=== PATIENT | female | born 1990 | race Caucasian/White ===

== ENCOUNTER 2017-08-26 08:45 | Emergency (ER) | payer SELFPAY ==
[~2017-08-26] VITALS: Ht 154.9 cm; Wt 70.0 kg
[2017-08-26 08:47] VITALS: Ht 154.9 cm; Wt 70.0 kg
[2017-08-26] MEDS ORDERED: FAMOTIDINE 20 MG TAB PO ONE (10:00)
[2017-08-26] MEDS ORDERED: DIPHENHYDRAMINE 25 MG CAP PO ONE (10:00)
[2017-08-26] MEDS ORDERED: DEXAMETHASONE 10 MG/ML 1 ML INJ IM ONE (10:00)
[2017-08-26] MEDS ORDERED: BEN25 PO (11:12)
--- NOTE | 2017-08-26 11:36 | ERD ---
ER Documentation Chief Complaint Chief Complaint ALLERGIC REACTION HPI A 27-year-old female patient with no significant past medical history presents to the ED complaining of hives all over her body and face. States that she was driving and all of a sudden she noticed some hives. Denies any fever, chills, nausea, vomiting, diarrhea, chest pain, shortness of breath, abdominal pain, lip swelling. ROS All systems reviewed and are negative except as per history of present illness. Medications Home Meds Active Scripts Diphenhydramine Hcl* (Benadryl*) 25 Mg Cap, 25 MG PO Q6 Y for ITCHING/RASH, #30 TAB Prov:[id number] Rosenbaum PA-C 08/26/17 Allergies Allergies: Coded Allergies: No Known Allergy (Verified Allergy, Mild, NONE, 04/18/08) PMhx/Soc Medical and Surgical Hx: pt denies Medical Hx, pt denies Surgical Hx Hx Alcohol Use: No Hx Substance Use: No Hx Tobacco Use: No Smoking Status: Never smoker Physical Exam Vitals Vital Signs Date Time Temp Pulse Resp B/P Pulse Ox O2 Delivery O2 Flow Rate FiO2 08/26/17 08:47 98.0 75 19 91/55 97 Physical Exam Const: Dro-ylj-xpocillpy, well-nourished. In no acute distress. Head: Atraumatic, normocephalic Eyes: Normal Conjunctiva without injection. No purulent discharge. PERRL. EOMI ENT: Normal external ear. Ear canal without erythema. Tympanic membrane pearly harmon without effusion or bulging. Nasal canal clear with normal turbinates. Moist oropharynx without tonsillar exudates. Non-erythematous pharynx. Uvula midline. No drooling. No trismus. Neck: Full range of motion. No meningismus. No cervical lymphadenopathy. Resp: Clear to auscultation bilaterally. No wheezing, rhonchi, rales, or crackles. No accessory muscle use. No retractions. Cardio: Regular rate and rhythm. No murmurs, rubs or gallops. Abd: Soft, non tender, non distended. Normal bowel sounds. No palpable masses. No rebound tenderness. No guarding. Skin: No petechiae or rashes Back: No midline tenderness. No CVA tenderness. Ext: No cyanosis, or edema. Neur: Awake and alert. Psych: Normal Mood and Affect Results 24 hrs Current Medications Medications (Trade) Dose Ordered Sig/Estella Route PRN Reason Start Time Stop Time Status Last Admin Dose Admin Diphenhydramine HCl (Benadryl) 25 mg ONCE ONCE PO 08/26/17 10:00 08/26/17 10:01 DC 08/26/17 10:12 Dexamethasone (Decadron) 10 mg ONCE ONCE IM 08/26/17 10:00 08/26/17 10:01 DC 08/26/17 10:12 Famotidine (Pepcid) 20 mg ONCE ONCE PO 08/26/17 10:00 08/26/17 10:01 DC 08/26/17 10:12 Procedures/MDM 27-year-old female patient with no significant past medical history presents to the ED complaining of hives all over her body. Patient is afebrile and nontoxic -appearing. Patient has normal vital signs. Patient likely had an allergic reaction due to unknown etiology. Low suspicion for anaphylaxis, scabies, SJS/ TEN, TSS, Lyme's Disease, syphilis, RMSF, shingles, disseminated gonorrhea chlamydia, DIC, TTP, ITP, erythema multiforme, sepsis, cellulitis, necrotizing fascitis, gangrene, meningococcemia, allergic contact dermatitis, urticaria, eczema, tinea infection, or other emergent conditions. Discharge medications: Benadryl Follow up with primary care physician in 1-2 days for allergy testing. Instructed patient to return to the ED sooner for any worsening symptoms. Patient's questions were answered. Patient understood and agreed with discharge plan. Patient discharged stable. Departure Diagnosis: Primary Impression: Hives Condition: Stable Patient Instructions: Hives Referrals: [facility] YOU HAVE RECEIVED A MEDICAL SCREENING EXAM AND THE RESULTS INDICATE THAT YOU DO NOT HAVE A CONDITION THAT REQUIRES URGENT TREATMENT IN THE EMERGENCY DEPARTMENT. FURTHER EVALUATION AND TREATMENT OF YOUR CONDITION CAN WAIT UNTIL YOU ARE SEEN IN YOUR DOCTORS OFFICE WITHIN THE NEXT 1-2 DAYS. IT IS YOUR RESPONSIBILITY TO MAKE AN APPOINTMENT FOR FOLOW-UP CARE. IF YOU HAVE A PRIMARY DOCTOR --you should call your primary doctor and schedule an appointment IF YOU DO NOT HAVE A PRIMARY DOCTOR YOU CAN CALL OUR PHYSICIAN REFERRAL HOTLINE AT IF YOU CAN NOT AFFORD TO SEE A PHYSICIAN YOU CAN CHOSE FROM THE FOLLOWING [facility] [address] [place] [facility] [address] [facility] [address] [facility] [address] [facility] [address] [facility]. [facility] [address] [facility]. [facility] YOU HAVE RECEIVED A MEDICAL SCREENING EXAM AND THE RESULTS INDICATE THAT YOU DO NOT HAVE A CONDITION THAT REQUIRES URGENT TREATMENT IN THE EMERGENCY DEPARTMENT. FURTHER EVALUATION AND TREATMENT OF YOUR CONDITION CAN WAIT UNTIL YOU ARE SEEN IN YOUR DOCTORS OFFICE WITHIN THE NEXT 1-2 DAYS. IT IS YOUR RESPONSIBILITY TO MAKE AN APPOINTMENT FOR FOLOW-UP CARE. IF YOU HAVE A PRIMARY DOCTOR --you should call your primary doctor and schedule and appointment IF YOU DO NOT HAVE A PRIMARY DOCTOR YOU CAN CALL OUR PHYSICIAN REFERRAL HOTLINE AT . IF YOU CAN NOT AFFORD TO SEE A PHYSICIAN YOU CAN CHOSE FROM THE FOLLOWING [facility] INSTITUTIONS: [facility] [address] [place] [address] [facility] [address] [place] [address] [facility] [address] [place] [address] [facility] URGENT CARE/SPECIALTIES Additional Instructions: Llame al doctor MAANA y luis indra LIBBY PARA DENTRO DE 1-2 FLYNN para las pruebas de alergia .Dgale a la secretaria que nosotros le instruimos hacer esta libby.Avise o llame si taveras condicin se empeora antes de la libby. Regresa aqui si peor o no mejor. DHRUV VASQUEZ PA-C Aug 26, 2017 11:36
== END 2017-08-26 11:35 | disposition home or self-care (01) ==
LOC: FTE 08:45
DX: L50.9 Urticaria, unspecified (principal)
CPT/HCPCS: 96372; 99284; J1100